=== PATIENT | female | born 1995 | race Caucasian/White ===

== ENCOUNTER 2021-01-15 15:01 | Emergency (ER) | payer BC ==
[2021-01-15] MEDS ORDERED: Sodium Chloride 0.9% 2.5 ML Syringe FLUSH PRN (16:10)
[2021-01-15] MEDS ORDERED: Sodium Chloride 0.9% 10 ML Syringe FLUSH PRN (16:10)
[2021-01-15 16:38] LABS: BLOOD UREA NITROGEN,BUN 15 mg/dL (7.0-18.0); CARBON DIOXIDE,CO2 18.6 mmol/L (21.0-32.0); CHLORIDE,CL 107 mmol/L (98-107); GLUCOSE RANDOM 95 mg/dL (74-106); POTASSIUM,K 3.7 mmol/L (3.5-5.1); SODIUM,NA 141 mmol/L (136-145)
[2021-01-15] MEDS ORDERED: Sodium Chloride 0.9% 1,000 ML IV ONE (16:39)
[2021-01-15] MEDS ORDERED: Dexamethasone 10 MG/ML SDV IVPUSH ONE (16:39)
[2021-01-15] MEDS ORDERED: Albuterol/Ipratropium 3.0-0.5 MG/3 ML Neb Soln NEB ONE (16:39)
[2021-01-15] MEDS ORDERED: Ondansetron 4 MG/2 ML SDV IVPUSH ONE (16:40)
[2021-01-15 17:05] LABS: CORONAVIRUS COVID-19 NAA NEGATIVE (NEGATIVE); INFLUENZA A NAA NEGATIVE (NEGATIVE); INFLUENZA B NAA NEGATIVE (NEGATIVE)
--- NOTE | 2021-01-15 17:07 | CR ---
INDICATION: Pain, dyspnea and wheezing COMPARISON: None TECHNIQUE: Single view of the chest obtained portably FINDINGS: TUBES AND LINES: None. HEART AND MEDIASTINUM: The heart size is normal. The mediastinal contour appears normal for patient age. LUNGS AND PLEURAL SPACES: The lungs appear normal.The pleural spaces are unremarkable. OSSEOUS STRUCTURES: Age-appropriate appearance. No acute focal finding. IMPRESSION: No evidence of active pulmonary disease. Dictated by Thomas Nur MD @ Jan 15 2021 5:03PM Signed by Dr. Thomas Nur @ Jan 15 2021 5:05PM
[2021-01-15] MEDS ORDERED: Iopamidol 755 MG/ML 500 ML Multipack Bottle IVPUSH STA (18:27)
--- NOTE | 2021-01-15 18:49 | CT ---
INDICATION: Cough. COMPARISON: Chest radiograph 01/15/2021. TECHNIQUE: CT of the chest with 75 cc of Isovue 370 IV contrast. Coronal and sagittal reconstructions. 3D post processing was performed. FINDINGS: Normal heart size. Normal caliber thoracic aorta and central pulmonary arteries. Negative for acute pulmonary embolism. No pericardial effusion. No thoracic lymphadenopathy. No focal consolidation, pleural effusion, or pneumothorax. No pulmonary nodules identified. No central endobronchial lesion or significant bronchial wall thickening. The thyroid gland is normal in appearance. The visualized upper abdomen is unremarkable. The bones are unremarkable. IMPRESSION: 1. Negative for acute pulmonary embolism. 2. No other acute findings in the chest. Please note that all CT scans at this facility use dose modulation, iterative reconstruction, and/or weight-based dosing when appropriate to reduce radiation dose to as low as reasonably achievable. Dictated by Camila Orozco MD @ Jan 15 2021 6:40PM Signed by Dr. Camila Orozco @ Jan 15 2021 6:47PM
--- NOTE | 2021-01-15 19:16 | EDM.PDOC ---
ED HPI GENERAL MEDICAL PROBLEM - General Chief Complaint: General Stated Complaint: COUGH Time Seen by Provider: 01/15/21 15:06 Source of Information: Reports: Patient History Limitations: Reports: No Limitations - History of Present Illness INITIAL COMMENTS - FREE TEXT/NARRATIVE: HISTORY AND PHYSICAL: History of present illness: Patient is a 25-year-old female who resents emergency room today with concern of cough x3 days. Patient states she has been feeling as if she "has a cold" but the coughing has been getting worse. Patient states that at times she is coughing so hard that she is feeling nauseous and has vomited on occasion. Patient states that she gets these "coughing spells "that makes it feel like she cannot breathe during the spells. Patient states that she went and got tested at the clinic on Tuesday for Covid and was tested negative. Patient states other than the cough making her vomit, she is not having any other associative symptoms. Patient states she has a history of PCOS and endometriosis but denies any other health history. Patient denies any other symptoms or concerns. She is up-to-date on vaccinations. Patient denies fever, chills, chest pain, shortness of breath. Denies headache, neck stiff ness, change in vision, syncope, or near syncope. Denies abdominal pain, diarrhea, constipation, or dysuria. Has not noted any blood in urine or stool. Patient has been eating and drinking appropriately. Review of systems: As per history of present illness and below otherwise all systems reviewed and negative. Past medical history: As per history of present illness and as reviewed below otherwise noncontributory. Surgical history: As per history of present illness and as reviewed below otherwise noncontributory. Social history: See social history for further information Family history: As per history of present illness and as reviewed below otherwise noncontributory. Physical exam: General: Patient is alert, oriented, and in no acute distress. Patient sitting comfortably on exam table. Patient is tearful on exam but is well-appearing. HEENT: Atraumatic, normocephalic, pupils equal and reactive bilaterally, negative for conjunctival pallor or scleral icterus, mucous membranes moist, TMs normal bilaterally, throat clear, neck supple, nontender, trachea midline. No drooling or trismus noted. No meningeal signs. No hot potato voice noted. Lungs: Patient does have spasmodic dry coughing spells on exam. Otherwise, clear to auscultation, breath sounds equal bilaterally, chest nontender. Heart: S1S2, regular rate and rhythm without overt murmur Abdomen: Soft, nondistended, nontender. Negative for masses or hepatosplenomegaly. Negative for costovertebral tenderness. Pelvis: Stable nontender. Genitourinary: Deferred. Rectal: Deferred. Skin: Intact, warm, dry. No lesions or rashes noted. Extremities: Atraumatic, negative for cords or calf pain. Neurovascular unremarkable. Neuro: Awake, alert, oriented. Cranial nerves II through XII unremarkable. Cerebellum unremarkable. Motor and sensory unremarkable throughout. Exam nonfocal. Notes: Initial exam, patient is sitting comfortably on exam table. She does have spasmodic coughing spells but does not have any emesis. Lungs are clear and patient has no increased work of breathing. Will perform basic labwork and CXR. Nursing staff states that they are concerned that patient has some wheezing while waiting for diagnostic completion. DuoNeb initiated prior to my revaluation. Upon reexamination, patient's lungs are clear, remains vitally stable, and in no acute distress. She is tearful on exam and still experiencing spasmatic coughing episodes but no emesis. Although CXR shows no acute findings, will perform chest CT for possible atypical pneumonia. All lab work today and imaging does not indicate why patient is experiencing the spasmatic coughing. Pertussis pending and will get results for this in a few days. Patient states that she does have an albuterol inhaler at home that she can use that she had for prior illness. Signs and symptoms that were prompt return the ED thoroughly discussed with patient. Discussed importance for follow-up with a primary care provider. Voices understanding and is agreeable to plan of care. Denies any further questions or concerns at this time. Diagnostics: CBC, CMP, UA, Uhcg, CXR, Ang CT, COVID/Flu, Pertussis Therapeutics: Decadron, Duoneb, Zofran, NS Prescription: None Impression: Cough Plan: 1. Use cough drops and/or other over the counter medications as needed for throat discomfort as discussed. Drink small but frequent sips of fluid to prevent dehydration. 2. Alternate Ibuprofen and Tylenol as directed for pain and discomfort. 3. Follow up with your primary care provider as discussed. 4. Return to the ED as needed and as discussed. Definitive disposition and diagnosis as appropriate pending reevaluation and review of above. 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 ED EXAM, GENERAL - Physical Exam Exam: See Below (see dictation) Course - Vital Signs Last Recorded V/S: Last Vital Signs Temp 96.2 F L 01/15/21 15:21 Pulse 99 01/15/21 17:33 Resp 17 01/15/21 17:33 BP 129/105 H 01/15/21 17:33 Pulse Ox 97 01/15/21 17:33 - Orders/Labs/Meds Orders: Active Orders 24 hr Category Date Time Status RT Aerosol Therapy [RC] ASDIRECTED Care 01/15/21 16:39 Active B PERTUSSIS IGG/M/A AB [REF] Stat Lab 01/15/21 16:00 Received CASI NAJERA NUCLEIC ACID AMP [MREF] Stat Lab 01/15/21 19:26 Ordered UA RFX EDIS AND CULT IF INDIC [URIN] Stat Lab 01/15/21 15:45 Ordered Sodium Chloride 0.9% [Saline Flush] Med 01/15/21 16:10 Active 10 ml FLUSH ASDIRECTED PRN Sodium Chloride 0.9% [Saline Flush] Med 01/15/21 16:10 Active 2.5 ml FLUSH ASDIRECTED PRN Saline Lock Insert [OM.PC] Stat Oth 01/15/21 16:10 Ordered Medication Orders Sodium Chloride (Saline Flush) 10 ml FLUSH ASDIRECTED PRN PRN Reason: Keep Vein Open Last Admin: 01/15/21 17:01 Dose: 10 ml Documented by: [id number] Sodium Chloride (Saline Flush) 2.5 ml FLUSH ASDIRECTED PRN PRN Reason: Keep Vein Open Last Admin: 01/15/21 17:01 Dose: 2.5 ml Documented by: [id number] Labs: Laboratory Tests 01/15/21 01/15/21 01/15/21 Range/Units 15:39 16:00 16:00 WBC 9.07 (4.0-11.0) K/uL RBC 5.09 (4.30-5.90) M/uL Hgb 15.9 (12.0-16.0) g/dL Hct 45.9 (36.0-46.0) % MCV 90.2 (80.0-98.0) fL MCH 31.2 (27.0-32.0) pg MCHC 34.6 (31.0-37.0) g/dL RDW Std Deviation 41.6 (28.0-62.0) fl RDW Coeff of Kesha 13 (11.0-15.0) % Plt Count 347 (150-400) K/uL MPV 10.40 (7.40-12.00) fL Neut % (Auto) 66.2 (48.0-80.0) % Lymph % (Auto) 26.9 (16.0-40.0) % [place] % (Auto) 5.3 (0.0-15.0) % Eos % (Auto) 1.3 (0.0-7.0) % Baso % (Auto) 0.3 (0.0-1.5) % Neut # (Auto) 6.0 H (1.4-5.7) K/uL Lymph # (Auto) 2.4 (0.6-2.4) K/uL [place] # (Auto) 0.5 (0.0-0.8) K/uL Eos # (Auto) 0.1 (0.0-0.7) K/uL Baso # (Auto) 0.0 (0.0-0.1) K/uL Nucleated RBC % 0.0 /100WBC Nucleated RBCs # 0 K/uL Sodium 141 (136-145) mmol/L Potassium 3.7 (3.5-5.1) mmol/L Chloride 107 (98-107) mmol/L Carbon Dioxide 18.6 L (21.0-32.0) mmol/L BUN 15 (7.0-18.0) mg/dL Creatinine 0.8 (0.6-1.0) mg/dL Est Cr Clr Drug Dosing 89.70 mL/min Estimated GFR (MDRD) > 60.0 ml/min Glucose 95 (74-106) mg/dL Calcium 9.4 (8.5-10.1) mg/dL Total Bilirubin 0.6 (0.2-1.0) mg/dL AST 43 H (15-37) IU/L ALT 62 (14-63) IU/L Alkaline Phosphatase 66 (46-116) U/L Total Protein 8.2 (6.4-8.2) g/dL Albumin 4.1 (3.4-5.0) g/dL Globulin 4.1 H (2.6-4.0) g/dL Albumin/Globulin Ratio 1.0 (0.9-1.6) Urine HCG, Qual NEGATIVE (NEGATIVE) Influenza Type A RNA (NEGATIVE) Influenza Type B RNA (NEGATIVE) SARS-CoV-2 RNA (MARISA) (NEGATIVE) 01/15/21 Range/Units 16:15 WBC (4.0-11.0) K/uL RBC (4.30-5.90) M/uL Hgb (12.0-16.0) g/dL Hct (36.0-46.0) % MCV (80.0-98.0) fL MCH (27.0-32.0) pg MCHC (31.0-37.0) g/dL RDW Std Deviation (28.0-62.0) fl RDW Coeff of Kesha (11.0-15.0) % Plt Count (150-400) K/uL MPV (7.40-12.00) fL Neut % (Auto) (48.0-80.0) % Lymph % (Auto) (16.0-40.0) % [place] % (Auto) (0.0-15.0) % Eos % (Auto) (0.0-7.0) % Baso % (Auto) (0.0-1.5) % Neut # (Auto) (1.4-5.7) K/uL Lymph # (Auto) (0.6-2.4) K/uL [place] # (Auto) (0.0-0.8) K/uL Eos # (Auto) (0.0-0.7) K/uL Baso # (Auto) (0.0-0.1) K/uL Nucleated RBC % /100WBC Nucleated RBCs # K/uL Sodium (136-145) mmol/L Potassium (3.5-5.1) mmol/L Chloride (98-107) mmol/L Carbon Dioxide (21.0-32.0) mmol/L BUN (7.0-18.0) mg/dL Creatinine (0.6-1.0) mg/dL Est Cr Clr Drug Dosing mL/min Estimated GFR (MDRD) ml/min Glucose (74-106) mg/dL Calcium (8.5-10.1) mg/dL Total Bilirubin (0.2-1.0) mg/dL AST (15-37) IU/L ALT (14-63) IU/L Alkaline Phosphatase (46-116) U/L Total Protein (6.4-8.2) g/dL Albumin (3.4-5.0) g/dL Globulin (2.6-4.0) g/dL Albumin/Globulin Ratio (0.9-1.6) Urine HCG, Qual (NEGATIVE) Influenza Type A RNA NEGATIVE (NEGATIVE) Influenza Type B RNA NEGATIVE (NEGATIVE) SARS-CoV-2 RNA (MARISA) NEGATIVE (NEGATIVE) Meds: Medications Generic Name Dose Route Start Last Admin Trade Name Freq PRN Reason Stop Dose Admin Sodium Chloride 10 ml 01/15/21 16:10 01/15/21 17:01 Saline Flush FLUSH 10 ml ASDIRECTED PRN Administration Keep Vein Open Sodium Chloride 2.5 ml 01/15/21 16:10 01/15/21 17:01 Saline Flush FLUSH 2.5 ml ASDIRECTED PRN Administration Keep Vein Open Discontinued Medications Generic Name Dose Route Start Last Admin Trade Name Freq PRN Reason Stop Dose Admin Albuterol/Ipratropium 3 ml 01/15/21 16:39 01/15/21 16:48 Duoneb 3.0-0.5 Mg/3 Ml NEB 01/15/21 16:40 3 ml ONETIME ONE Administration Dexamethasone 6 mg 01/15/21 16:39 01/15/21 17:01 Decadron IVPUSH 01/15/21 16:40 6 mg ONETIME ONE Administration Sodium Chloride 1,000 mls @ 999 mls/hr 01/15/21 16:39 01/15/21 17:01 Normal Saline IV 01/15/21 17:39 999 mls/hr STAT ONE Administration Iopamidol 75 ml 01/15/21 18:27 01/15/21 18:27 Isovue Multipack-370 (76%) IVPUSH 01/15/21 18:28 75 ml ONETIME STA Administration Ondansetron HCl 4 mg 01/15/21 16:40 01/15/21 17:00 Zofran IVPUSH 01/15/21 16:41 4 mg ONETIME ONE Administration Departure - Departure Time of Disposition: 19:16 Disposition: Home, Self-Care 01 Clinical Impression: Cough - Discharge Information Instructions: Cough, Adult, [id number] Referrals: PCP,None [Primary Care Provider] - Forms: ED Department Discharge Additional Instructions: The following information is given to patients seen in the emergency department who are being discharged to home. This information is to outline your options for follow-up care. We provide all patients seen in our emergency department with a follow-up referral. The need for follow-up, as well as the timing and circumstances, are variable depending upon the specifics of your emergency department visit. If you don't have a primary care physician on staff, we will provide you with a referral. We always advise you to contact your personal physician following an emergency department visit to inform them of the circumstance of the visit and for follow-up with them and/or the need for any referrals to a consulting specialist. The emergency department will also refer you to a specialist when appropriate. This referral assures that you have the opportunity for follow-up care with a specialist. All of these measure are taken in an effort to provide you with optimal care, which includes your follow-up. Under all circumstances we always encourage you to contact your private physician who remains a resource for coordinating your care. When calling for follow-up care, please make the office aware that this follow-up is from your recent emergency room visit. If for any reason you are refused follow-up, please contact the [facility] Emergency Department at and asked to speak to the emergency department charge nurse. [facility] [address] [place] [address] [facility] [address] [place] [id number] 1. Use cough drops and/or other over the counter medications as needed for throat discomfort as discussed. Drink small but frequent sips of fluid to prevent dehydration. 2. Alternate Ibuprofen and Tylenol as directed for pain and discomfort. 3. Follow up with your primary care provider as discussed. 4. Return to the ED as needed and as discussed. Sepsis Event Note (ED) - Evaluation Sepsis Screening Result: No Definite Risk - Focused Exam Vital Signs: Vital Signs Temp Pulse Resp BP Pulse Ox 01/15/21 17:33 99 17 129/105 H 97 01/15/21 17:02 99 17 121/82 98 01/15/21 16:37 69 18 135/77 97 01/15/21 15:21 96.2 F L 109 H 18 135/90 99 - My Orders Last 24 Hours: My Active Orders 01/15/21 15:45 UA RFX EDIS AND CULT IF INDIC [URIN] Stat 01/15/21 16:00 B PERTUSSIS IGG/M/A AB [REF] Stat 01/15/21 16:10 Sodium Chloride 0.9% [Saline Flush] 10 ml FLUSH ASDIRECTED PRN Sodium Chloride 0.9% [Saline Flush] 2.5 ml FLUSH ASDIRECTED PRN Saline Lock Insert [OM.PC] Stat 01/15/21 16:39 RT Aerosol Therapy [RC] ASDIRECTED 01/15/21 19:26 BORD PERTUSS NUCLEIC ACID AMP [MREF] Stat - Assessment/Plan Last 24 Hours: My Active Orders 01/15/21 15:45 UA RFX EDIS AND CULT IF INDIC [URIN] Stat 01/15/21 16:00 B PERTUSSIS IGG/M/A AB [REF] Stat 01/15/21 16:10 Sodium Chloride 0.9% [Saline Flush] 10 ml FLUSH ASDIRECTED PRN Sodium Chloride 0.9% [Saline Flush] 2.5 ml FLUSH ASDIRECTED PRN Saline Lock Insert [OM.PC] Stat 01/15/21 16:39 RT Aerosol Therapy [RC] ASDIRECTED 01/15/21 19:26 CASI NAJERA NUCLEIC ACID AMP [MREF] Stat
== END 2021-01-15 19:36 | disposition home or self-care (01) ==
LOC: MW.ED 15:01
DX: R05 Cough (principal); Z88.0 Allergy status to penicillin; Z88.1 Allergy status to other antibiotic agents; Z88.2 Allergy status to sulfonamides; Z91.018 Allergy to other foods; Z20.822 Contact with and (suspected) exposure to COVID-19
CPT/HCPCS: 0240U; 36415; 71045; 71275; 80053; 81025; 85025; 86615; 94640; 96374; 96375; 99284; J1100; J2405; J7030; Q9967; 87798; 99283; J7620-GY

== ENCOUNTER 2022-10-03 09:17 | Emergency (ER) | payer BC ==
[2022-10-03] MEDS ORDERED: fentaNYL 50 MCG/ML SDV IVPUSH ONE (09:19)
[2022-10-03] MEDS ORDERED: Ondansetron 4 MG/2 ML SDV IVPUSH ONE (09:52)
[2022-10-03] MEDS ORDERED: Ketorolac 30 MG/ML SDV IVPUSH ONE (10:02)
== END 2022-10-03 10:35 | disposition home or self-care (01) ==
LOC: MW.ED 09:17
DX: S83.005A Unspecified dislocation of left patella, initial encounter (principal); Z88.0 Allergy status to penicillin; Z88.1 Allergy status to other antibiotic agents; Z91.018 Allergy to other foods
CPT/HCPCS: 27560; 73560; 96374; 96375; 99283; J1885; J2405; J3010

== ENCOUNTER 2023-08-16 00:05 | Inpatient (IN) | payer BC ==
[2023-08-16] MEDS ORDERED: Water For Irrigation,Sterile 1,000 ML Container IRR PRN (00:18)
[2023-08-16] MEDS ORDERED: Sodium Chloride 0.9% 10 ML Syringe FLUSH PRN (00:18)
[2023-08-16] MEDS ORDERED: Lidocaine 1% 50 ML MDV INJECT PRN (00:18)
[2023-08-16] MEDS ORDERED: Sodium Chloride 0.9% 20 ML SDV IV PRN (00:18)
[2023-08-16] MEDS ORDERED: Tranexamic Acid IN NACL,ISO-OS 1,000 MG in Premix Bag 1 BAG IV PRN ×4 (00:18→18:41)
[2023-08-16] MEDS ORDERED: Methylergonovine 0.2 MG/1 ML Amp IM PRN ×2 (00:18→18:41)
[2023-08-16] MEDS ORDERED: Sodium Chloride 0.9% 2.5 ML Syringe FLUSH PRN (00:18)
[2023-08-16] MEDS ORDERED: Terbutaline 1 MG/ML SDV SUBCUT PRN (00:18)
[2023-08-16] MEDS ORDERED: Carboprost Tromethamine 250 MCG/1 mL Vial IM PRN (00:18)
[2023-08-16] MEDS ORDERED: Butorphanol 1 MG/ML SDV IVPUSH PRN (00:18)
[2023-08-16] MEDS ORDERED: Misoprostol 200 MCG Tab PO PRN (00:18)
[2023-08-16] MEDS ORDERED: Oxytocin/0.9 % Sodium Chloride 30 UNIT/500 ML BAG IV SCH ×3 (00:30→18:45)
[2023-08-16 00:45] LABS: HEMATOCRIT 39.7 % (36.0-46.0); HEMOGLOBIN 13.2 g/dL (12.0-16.0); MEAN CORPUSCULAR HEMOGLOBIN 29.9 pg (27.0-32.0); MEAN CORPUSCULAR HGB CONC 33.2 g/dL (31.0-37.0); PLATELET COUNT,PLT 265 K/uL (150-400); RED BLOOD CELL COUNT 4.41 M/uL (4.30-5.90); WHITE BLOOD CELL COUNT,WBC 10.72 K/uL (4.0-11.0)
[2023-08-16] MEDS: Lactated Ringers 1,000 ML IV SCH ×2 (00:48→04:03)
[2023-08-16] MEDS ORDERED: Nalbuphine 10 MG/0.5 ML Syringe IVPUSH ONE ×2 (04:57→06:44)
[2023-08-16] MEDS ORDERED: Phenylephrine HCl 0.5 MG/5 ML AMP IVPUSH PRN (07:21)
[2023-08-16] MEDS ORDERED: ePHEDrine 50 MG/ML SDV IVPUSH PRN ×3 (07:21→17:02)
[2023-08-16] MEDS ORDERED: Ropivacaine HCl/PF 400 MG in Premix Bag 1 BAG EPIDUR SCH (07:30)
[2023-08-16] MEDS ORDERED: Dexmedetomidine 200 MCG/2 ML SDV ONE ×2 (07:40→16:34)
[2023-08-16] MEDS ORDERED: Azithromycin 500 MG in Sodium Chloride 0.9% 250 ML IV ONE (16:33)
[2023-08-16] MEDS ORDERED: Ondansetron 4 MG/2 ML SDV ONE ×2 (16:34)
[2023-08-16] MEDS ORDERED: Oxytocin 10 Units/1 ML SDV ONE ×2 (16:34→16:53)
[2023-08-16] MEDS ORDERED: Morphine PF 10 MG/10 ML SDV ONE (16:34)
[2023-08-16] MEDS ORDERED: Dexamethasone 4 MG/ML 5 ML MDV ONE (16:34)
[2023-08-16] MEDS ORDERED: Bupivacaine 0.5% 30 ML SDV ONE (16:35)
[2023-08-16] MEDS ORDERED: fentaNYL 100 MCG/2 ML SDV ONE (16:35)
[2023-08-16] MEDS ORDERED: Ketorolac 30 MG/ML SDV ONE (16:55)
[2023-08-16] MEDS ORDERED: Ropivacaine 0.5% 5 MG/ML 30 ML SDV ONE (16:55)
[2023-08-16] MEDS ORDERED: droPERidol 5 MG/2 ML SDV IVPUSH PRN (17:02)
[2023-08-16] MEDS ORDERED: diphenhydrAMINE 50 MG/ML SDV IVPUSH PRN ×2 (17:02→18:41)
[2023-08-16] MEDS ORDERED: Naloxone 0.4 MG/ML SDV IVPUSH PRN (17:02)
[2023-08-16] MEDS ORDERED: Albuterol 0.083% 2.5 MG/3 ML Neb Soln NEB PRN (17:02)
[2023-08-16] MEDS ORDERED: Ondansetron 4 MG/2 ML SDV IVPUSH PRN ×3 (17:02→18:41)
[2023-08-16] MEDS ORDERED: fentaNYL 50 MCG/ML SDV IVPUSH PRN (17:02)
[2023-08-16] MEDS ORDERED: Morphine 2 MG/ML SYRINGE IVPUSH PRN (17:02)
[2023-08-16] MEDS ORDERED: Metoclopramide 10 MG/2 ML SDV IVPUSH PRN (17:02)
[2023-08-16] MEDS ORDERED: HYDROmorphone 2 MG/ML Syringe IVPUSH PRN (17:02)
[2023-08-16] MEDS ORDERED: fentaNYL 100 MCG/2 ML SDV IVPUSH PRN (17:02)
[2023-08-16] MEDS ORDERED: droPERidol 5 MG/2 ML SDV ONE (17:17)
[2023-08-16] MEDS ORDERED: Misoprostol 200 MCG Tab RECTAL PRN (18:41)
[2023-08-16] MEDS ORDERED: Bisacodyl 10 MG Supp RECTAL PRN (18:41)
[2023-08-16] MEDS ORDERED: Oxytocin 10 Units/1 ML SDV IM PRN (18:41)
[2023-08-16] MEDS ORDERED: Lanolin 100% Cream 7 GM Tube TOP PRN (18:41)
[2023-08-16] MEDS ORDERED: Lactated Ringers 1,000 ML IV SCH (18:45)
[2023-08-16 18:48] LABS: PH,UMBILICAL ARTERIAL 7.211 (7.18-7.38); PH,UMBILICAL VENOUS 7.296 (7.25-7.45)
[2023-08-16] MEDS: Docusate Sodium 100 MG Cap PO SCH (21:00)
[2023-08-16] MEDS: Ketorolac 30 MG/ML SDV IVPUSH SCH (23:00)
[2023-08-16] MEDS ORDERED: Acetaminophen 1,000 MG in Premix Bag 1 BAG IV PRN (23:00)
[2023-08-17] MEDS: Acetaminophen 1,000 MG in Premix Bag 1 BAG IV PRN ×3 (00:15→13:21)
[2023-08-17] MEDS: Ketorolac 30 MG/ML SDV IVPUSH SCH ×3 (04:32→17:12)
[2023-08-17 05:46] LABS: HEMATOCRIT 33.3 % (36.0-46.0); HEMOGLOBIN 11.2 g/dL (12.0-16.0)
[2023-08-17] MEDS: Docusate Sodium 100 MG Cap PO SCH ×2 (10:54→20:32)
[2023-08-17] MEDS ORDERED: Hydrocortisone 2.5% Crm 30 GM Tube TOP PRN (15:53)
[2023-08-17] MEDS ORDERED: Witch Hazel Medicated Pads 40/Jar TOP PRN (15:55)
[2023-08-17] MEDS: ESCITALOPRAM 10 MG PO SCH (20:32)
[2023-08-17] MEDS ORDERED: Escitalopram 10 MG Tab PO SCH (21:00)
[2023-08-17] MEDS: Ibuprofen 800 MG Tab PO PRN (21:49)
[2023-08-17] MEDS: Acetaminophen/oxyCODONE 325-5 MG Tab PO PRN (21:50)
[2023-08-18] MEDS: Ibuprofen 800 MG Tab PO PRN ×2 (07:34→17:57)
[2023-08-18] MEDS: Docusate Sodium 100 MG Cap PO SCH ×2 (08:52→21:34)
[2023-08-18] MEDS: Acetaminophen/oxyCODONE 325-5 MG Tab PO PRN ×3 (09:23→22:25)
[2023-08-18] MEDS: ESCITALOPRAM 10 MG PO SCH (21:34)
[2023-08-19] MEDS: Ibuprofen 800 MG Tab PO PRN ×2 (02:11→10:28)
[2023-08-19] MEDS: Docusate Sodium 100 MG Cap PO SCH (10:26)
== END 2023-08-19 13:30 | disposition home or self-care (01) | DRG 540 ==
LOC: MW.OB 00:05 → OBSVTOIN 16:52 → MW.OB 22:46
PROVIDERS: ADMIT Obstetrics & Gynecology; ATTEND Obstetrics & Gynecology
PROC: 10D00Z1 Extraction of Products of Conception, Low, Open Approach (ICD-10-PCS; principal; 2023-08-16)
PROC: 3E0R3BZ Introduction of Anesthetic Agent into Spinal Canal, Percutaneous Approach (ICD-10-PCS; 2023-08-16)
PROC: 00HU33Z Insertion of Infusion Device into Spinal Canal, Percutaneous Approach (ICD-10-PCS; 2023-08-16)
PROC: 10907ZC Drainage of Amniotic Fluid, Therapeutic from Products of Conception, Via Natural or Artificial Opening (ICD-10-PCS; 2023-08-16)
PROC: 3E033VJ Introduction of Other Hormone into Peripheral Vein, Percutaneous Approach (ICD-10-PCS; 2023-08-16)
PROC: 3E0DXGC Introduction of Other Therapeutic Substance into Mouth and Pharynx, External Approach (ICD-10-PCS; 2023-08-16)
PROC: 3E0P7VZ Introduction of Hormone into Female Reproductive, Via Natural or Artificial Opening (ICD-10-PCS; 2023-08-16)
PROC: 10H07YZ Insertion of Other Device into Products of Conception, Via Natural or Artificial Opening (ICD-10-PCS; 2023-08-16)
DX: O48.0 Post-term pregnancy (principal); O99.214 Obesity complicating childbirth; O87.2 Hemorrhoids in the puerperium; O76 Abnormality in fetal heart rate and rhythm complicating labor and delivery; O77.0 Labor and delivery complicated by meconium in amniotic fluid; O69.81X0 Labor and delivery complicated by cord around neck, without compression, not applicable or unspecified; Z37.0 Single live birth; O99.344 Other mental disorders complicating childbirth; O99.284 Endocrine, nutritional and metabolic diseases complicating childbirth; E28.2 Polycystic ovarian syndrome; F32.A Depression, unspecified; Z3A.40 40 weeks gestation of pregnancy; Z90.89 Acquired absence of other organs; Z87.891 Personal history of nicotine dependence; Z86.16 Personal history of COVID-19; Z88.0 Allergy status to penicillin; Z88.1 Allergy status to other antibiotic agents; Z91.018 Allergy to other foods
CPT/HCPCS: 01967; 01968; 36415; 51702; 59025; 64488; 82803; 85014; 85018; 85027; 86592; 86850; 86900; 86901; A9270-GY; J0131; J1100; J1790; J1885; J2274; J2300; J2371; J2405; J2590; J2795; J3010; J3490; J7120

== ENCOUNTER 2023-08-26 22:28 | Emergency (ER) | payer BC ==
[2023-08-26] MEDS ORDERED: Cephalexin 500 MG Cap PO ONE (23:51)
== END 2023-08-27 00:12 | disposition home or self-care (01) ==
LOC: MW.ED 22:28
DX: L76.32 Postprocedural hematoma of skin and subcutaneous tissue following other procedure (principal); J45.909 Unspecified asthma, uncomplicated; Z86.16 Personal history of COVID-19; Z88.0 Allergy status to penicillin; Z88.1 Allergy status to other antibiotic agents; Z88.2 Allergy status to sulfonamides; Z91.018 Allergy to other foods
CPT/HCPCS: 99283; A9270

== ENCOUNTER 2023-11-22 15:28 | Emergency (ER) | payer BC, MEDICAID | END 2023-11-22 17:21 | disposition home or self-care (01) | LOC: MW.ED 15:28 | DX: O86.02 Infection of obstetric surgical wound, deep incisional site (principal); E66.9 Obesity, unspecified; Z86.16 Personal history of COVID-19; Z79.899 Other long term (current) drug therapy; Z88.1 Allergy status to other antibiotic agents; Z88.2 Allergy status to sulfonamides; Z91.018 Allergy to other foods; Z88.8 Allergy status to other drugs, medicaments and biological substances | CPT/HCPCS: 99283 ==